=== PATIENT | female | born 1975 | race Caucasian/White ===

== ENCOUNTER 2016-12-30 06:09 | Day surgery (SDC) | payer BC ==
[2016-12-24 13:29] VITALS: BP 134/90
[~2016-12-30] VITALS: Ht 154.9 cm; Wt 81.9 kg
[~2016-12-30 06:09] MED LIST: NONE PER PT
[2016-12-30] MEDS ORDERED: LACTATED RINGERS 1,000 ML IV SCH (06:40)
[2016-12-30 06:41] VITALS: BP 134/90
[2016-12-30] MEDS ORDERED: LIDOCAINE 1%, 2ML SQ PRN (07:00)
[2016-12-30] MEDS ORDERED: FENTANYL PF 100 MCG/2ML ONE (07:19)
[2016-12-30] MEDS ORDERED: MIDAZOLAM 1 MG/ML, 2ML ONE (07:19)
[2016-12-30] MEDS ORDERED: MEPERIDINE/PF 25MG/0.5ML IVPush PRN (07:30)
[2016-12-30] MEDS ORDERED: ACETAMINOPHEN 325 MG TABLET PO PRN (07:30)
[2016-12-30] MEDS ORDERED: METOPROLOL 1 MG/ML, 5ML IV PRN (07:30)
[2016-12-30] MEDS ORDERED: ALBUTEROL SULFATE 2.5 MG/3 ML NPPB PRN (07:30)
[2016-12-30] MEDS ORDERED: EPHEDRINE 50 MG/ML, 1ML IVPush PRN (07:30)
[2016-12-30] MEDS ORDERED: ONDANSETRON 2MG/ML, 2ML IVPush PRN (07:30)
[2016-12-30] MEDS ORDERED: LABETALOL 5MG/ML, 20ML IV PRN (07:30)
[2016-12-30] MEDS ORDERED: OXYcodone 5 MG/5 ML ORAL.SOL UDC PO PRN (07:30)
[2016-12-30] MEDS ORDERED: HYDROmorphone 1 MG/ML, 1ML IV PRN (07:30)
[2016-12-30] MEDS ORDERED: HYDROcodone/APAP 7.5-325MG/15ML UDC PO PRN (07:30)
[2016-12-30] MEDS ORDERED: hydrALAzine 20 MG/ML, 1ML IV PRN (07:30)
[2016-12-30] MEDS ORDERED: FENTANYL PF 100 MCG/2ML IV PRN (07:30)
[2016-12-30 08:19] LABS: HCG UR OBC PASS
== END 2016-12-30 09:00 ==
LOC: OUT 06:09
PROVIDERS: ATTEND Surgery
DX: K63.89 Other specified diseases of intestine (principal); K57.30 Diverticulosis of large intestine without perforation or abscess without bleeding; Z98.51 Tubal ligation status; Z98.890 Other specified postprocedural states; Z88.1 Allergy status to other antibiotic agents; Z88.5 Allergy status to narcotic agent
CPT/HCPCS: 45378; 81025; J2250; J3010; J3490; J7120

== ENCOUNTER 2016-12-30 07:30 | Inpatient (IN) | payer BC ==
[~2016-12-30] VITALS: Ht 157.5 cm; Wt 86.5 kg
[2016-12-31] MEDS ORDERED: BUPIVACAINE/PF 0.5% ONE (07:04)
[2016-12-31] MEDS ORDERED: BUPIVACAINE/PF 0.25% ONE (07:10)
[2016-12-31] MEDS ORDERED: MIDAZOLAM 1 MG/ML, 2ML ONE (08:22)
[2016-12-31] MEDS ORDERED: FENTANYL PF 100 MCG/2ML ONE ×3 (08:22→11:47)
[2016-12-31] MEDS ORDERED: LACTATED RINGERS 1,000 ML IV SCH (08:52)
[2016-12-31] MEDS ORDERED: INDOCYANINE GREEN 25 MG VIAL ONE (09:43)
[2016-12-31] MEDS ORDERED: GLYCOPYRROLATE 0.2MG/1ML ONE (10:05)
[2016-12-31] MEDS ORDERED: CEFOTETAN 2 GM ONE (10:05)
[2016-12-31] MEDS ORDERED: PROPOFOL 10 MG/ML, 20ML ONE (10:05)
[2016-12-31] MEDS ORDERED: DEXAMETHASONE 4 MG/ML, 1ML ONE (10:05)
[2016-12-31] MEDS ORDERED: ROCURONIUM 10 MG/ML ONE (10:05)
[2016-12-31] MEDS ORDERED: NEOSTIGMINE 1 MG/ML, 10ML ONE (10:05)
[2016-12-31] MEDS ORDERED: hydrALAzine 20 MG/ML, 1ML IV PRN (11:00)
[2016-12-31] MEDS ORDERED: ONDANSETRON 2MG/ML, 2ML IVPush PRN (11:00)
[2016-12-31] MEDS ORDERED: ACETAMINOPHEN 325 MG TABLET PO PRN (11:00)
[2016-12-31] MEDS ORDERED: OXYcodone 5 MG/5 ML ORAL.SOL UDC PO PRN (11:00)
[2016-12-31] MEDS ORDERED: LABETALOL 5MG/ML, 20ML IV PRN (11:00)
[2016-12-31] MEDS ORDERED: PROMETHAZINE 25 MG/ML, 1ML IV PRN (11:00)
[2016-12-31] MEDS ORDERED: MEPERIDINE/PF 25MG/0.5ML IVPush PRN (11:00)
[2016-12-31] MEDS ORDERED: FENTANYL PF 100 MCG/2ML IV PRN (11:00)
[2016-12-31] MEDS ORDERED: HYDROmorphone 2 MG/ML, 1ML ONE (12:28)
[2016-12-31] MEDS ORDERED: ACETAMINOPHEN 650 MG/20.3 ML UDC ONE (12:28)
[2016-12-31] MEDS ORDERED: OXYcodone 5 MG/5 ML ORAL.SOL UDC ONE (12:28)
[2016-12-31] MEDS: HYDROmorphone 1 MG/ML, 1ML IV PRN ×4 (12:31→13:07)
[2016-12-31] MEDS ORDERED: ONDANSETRON 2MG/ML, 2ML ONE (13:13)
[2016-12-31] MEDS ORDERED: LORazepam 2 MG/ML, 1ML IV PRN (16:00)
[2016-12-31] MEDS ORDERED: DIPHENHYDRAMINE 50 MG/ML, 1ML IV PRN (16:00)
[2016-12-31] MEDS ORDERED: LORazepam 1MG TABLET PO PRN (16:00)
[2016-12-31] MEDS ORDERED: DIPHENHYDRAMINE 25 MG CAPSULE PO PRN (16:00)
[2016-12-31] MEDS ORDERED: HYDROmorphone 1 MG/ML, 1ML IV PRN (16:00)
[2016-12-31] MEDS ORDERED: OXYcodone IR 5MG TABLET ONE (16:02)
[2016-12-31] MEDS: OXYcodone 5 MG/5 ML ORAL.SOL UDC PO PRN ×3 (16:06→20:21)
[2016-12-31] MEDS: ACETAMINOPHEN 500 MG TABLET PO SCH ×2 (16:33→21:58)
[2016-12-31] MEDS: IBUPROFEN 600 MG TABLET PO SCH (16:33)
[2016-12-31] MEDS: POTASSIUM CHLORIDE 20 MEQ in D5%-0.45% NACL 1,000 ML IV SCH (16:34)
[2016-12-31 18:56] VITALS: BP 103/63
[2016-12-31 23:36] VITALS: BP 97/57
[2017-01-01] MEDS: IBUPROFEN 600 MG TABLET PO SCH ×3 (00:08→16:24)
[2017-01-01 04:04] VITALS: BP 99/64
[2017-01-01] MEDS: ACETAMINOPHEN 500 MG TABLET PO SCH ×4 (04:25→22:02)
[2017-01-01 04:31] LABS: HEMATOCRIT 34.4 % (34.6-47.8); HEMOGLOBIN 11.5 g/dL (11.7-16.4); WHITE BLOOD COUNT 18.6 x10^3/uL (3.4-10)
[2017-01-01 04:42] LABS: BLOOD UREA NITROGEN 9 mg/dL (7-18)
[2017-01-01] MEDS: OXYcodone 5 MG/5 ML ORAL.SOL UDC PO PRN (05:20)
[2017-01-01] MEDS: ENOXAPARIN 40 MG/0.4 ML SQ SCH (05:21)
[2017-01-01 08:30] VITALS: BP 102/61
[2017-01-01] MEDS: POTASSIUM CHLORIDE 20 MEQ in D5%-0.45% NACL 1,000 ML IV SCH (09:34)
[2017-01-01 14:23] VITALS: BP 96/55
[2017-01-01 19:36] VITALS: BP 97/62
[2017-01-02] MEDS: IBUPROFEN 600 MG TABLET PO SCH ×2 (00:06→08:25)
[2017-01-02 01:11] VITALS: BP 104/68
[2017-01-02] MEDS: ACETAMINOPHEN 500 MG TABLET PO SCH ×2 (03:52→08:24)
[2017-01-02 05:36] LABS: BLOOD UREA NITROGEN 16 mg/dL (7-18)
[2017-01-02 05:42] LABS: HEMATOCRIT 35.2 % (34.6-47.8); HEMOGLOBIN 11.9 g/dL (11.7-16.4); WHITE BLOOD COUNT 13.1 x10^3/uL (3.4-10)
[2017-01-02] MEDS: ENOXAPARIN 40 MG/0.4 ML SQ SCH (06:16)
[2017-01-02] MEDS: OXYcodone 5 MG/5 ML ORAL.SOL UDC PO PRN (06:21)
[2017-01-02 07:41] VITALS: BP 98/66
[2017-01-02] MEDS ORDERED: OXYC-302 PO (07:57)
[2017-01-02] MEDS: POTASSIUM CHLORIDE 20 MEQ in D5%-0.45% NACL 1,000 ML IV SCH (08:24)
== END 2017-01-02 10:30 | disposition home or self-care (01) | DRG 331 ==
LOC: EDSTATUS 07:30 → ORIP 12-31 08:44 → 4NOR 12-31 14:05
PROVIDERS: ADMIT Surgery; ATTEND Surgery
PROC: 04LB4ZZ Occlusion of Inferior Mesenteric Artery, Percutaneous Endoscopic Approach (ICD-10-PCS; 2016-12-31)
PROC: 0DBP4ZZ Excision of Rectum, Percutaneous Endoscopic Approach (ICD-10-PCS; 2016-12-31)
PROC: 8E0W4CZ Robotic Assisted Procedure of Trunk Region, Percutaneous Endoscopic Approach (ICD-10-PCS; 2016-12-31)
PROC: 0DBN4ZZ Excision of Sigmoid Colon, Percutaneous Endoscopic Approach (ICD-10-PCS; principal; 2016-12-31 09:30)
DX: K57.92 Diverticulitis of intestine, part unspecified, without perforation or abscess without bleeding (principal); D72.829 Elevated white blood cell count, unspecified
CPT/HCPCS: 36415; 80048; 82040; 85025; 86850; 86900; 88305; 88307; C1729; J1100; J1170; J1650; J2250; J2405; J2704; J2710; J3010; J3480; J3490; C1765; J7120; S0074